=== PATIENT | female | born 1935 | race Hispanic/Latino ===

== ENCOUNTER → 2017-07-23 | Outpatient (CLI) | payer MEDICARE, OTHER ==
--- NOTE | 2017-07-23 15:58 | Diagnostic Imaging Report ---
PROCEDURE:THORACIC SPINE 2VW COMPARISON:None. INDICATIONS:THORACIC SPONDYLOSIS, RIGHT SHOULDER PAIN FINDINGS: Mild multilevel disc space narrowing and mild anterior disc osteophytes. No spondylolisthesis. No compression deformity. CONCLUSION: Mild degenerative changes throughout the thoracic spine. Dictated by: Rehan Wade M.D. on 07/23/2017 at 16:00 Electronically approved by: Rehan Wade M.D. on 07/23/2017 at 16:00
--- NOTE | 2017-07-23 16:00 | Diagnostic Imaging Report ---
PROCEDURE: C-SPINE COMPLETE COMPARISON: None. INDICATIONS: THORACIC SPONDYLOSIS, RIGHT SHOULDER PAIN FINDINGS: C1 through C6 are visualized on the lateral view. The spine is in anatomic alignment without evidence of fracture or subluxation. Vertebral body heights are maintained. Mild multilevel disc space narrowing with anterior disc osteophytes. Moderate facet arthrosis at C5-C6 and C6-C7. The prevertebral soft tissues are normal. On bilateral obliques, mild multilevel neuroforaminal narrowing especially in the left. CONCLUSION: Mild diffuse degenerative changes in the cervical spine. Mild multilevel neuroforaminal narrowing. Dictated by: Rehan Wade M.D. on 07/23/2017 at 16:02 Electronically approved by: Rehan Wade M.D. on 07/23/2017 at 16:02
== END ==
LOC: RAD 14:43
PROVIDERS: ATTEND Internal Medicine
DX: M47.814 Spondylosis without myelopathy or radiculopathy, thoracic region (principal); M54.2 Cervicalgia
CPT/HCPCS: 72050; 72070

== ENCOUNTER → 2018-02-18 | Outpatient (CLI) | payer MEDICARE, OTHER ==
--- NOTE | 2018-02-18 15:13 | Diagnostic Imaging Report ---
AP and Lateral views of the thoracic and lumbar spine HISTORY: Sprain of ligaments of thoracic spine, initial encounte COMPARISON: None. FINDINGS: Some of the osseous structures are partially obscured by stool and overlying bowel gas. Thoracic spine: Mild right convex curvature. No evidence of a compression deformity or displaced fracture. Mild to moderate multilevel degenerative disc changes. Lumbar spine: There are 5 non-rib bearing lumbar-type vertebral bodies. Mild left convex curvature. No evidence of a compression deformity or displaced fracture. Multilevel severe degenerative disc changes throughout the lumbosacral spine. Multilevel hypertrophic facet arthrosis, most notably severe at L5-S1 greater than L4-5. Other: * A nonspecific 9 mm round calcification within the mid to upper right hemiabdomen. * Diffuse scattered atherosclerotic vascular calcifications. IMPRESSION: 1. No acute radiographic abnormality. 2. Multilevel degenerative changes, most notably severe at L5-S1, greater than L4-5 and L3-4, resulting in multilevel neural foraminal encroachment. 3. Possible cholelithiasis. Signed by: Dr. Seymour Nunez D.O., M.M.M. on 02/18/2018 3:10 PM
--- NOTE | 2018-02-18 15:32 | Diagnostic Imaging Report ---
Exam: Bone mineral density study. History: Disorder of bone density Comparison: Data from baseline June 04, 2010, most recent January 15, 2012. Lumbar spine radiographs from the same date. Discussion: Evaluation of the left hip and lumbar spine was performed. The study is technically adequate. The patient's fracture risk is compared to an age-matched control. The patient denies prior surgery/fracture of the spine, hips or forearm. Left hip femoral neck bone mineral density: 0.8 g/cm2, T-score is -0.5, Z-score is 1.8. The left hip total bone mineral density is 1 g/cm2, the T-score is 0 and the total Z-score is 2.2. The BMD change versus baseline is - 6.9% and the BMD change versus previous - 4.1%, both are statistically significant. The lumbar spine total bone mineral density is 1.5 g/cm2, the T-score is 4.4, and the Z-score is 7.1. The BMD change versus baseline is + 9.7% and the BMD change versus previous + 4.8%, both are statistically significant. Impression: 1. Bone mineralization by WHO Classification is normal, the fracture risk is not increased. 2. Decreasing left hip bone mineral density. 3. Increasing lumbar spine bone mineral density is likely secondary to increasing degenerative changes, if bone densitometry is indicated in the future, recommend utilizing the left hip and a forearm for most accurate assessment. Signed by: Dr. Seymour Nunez D.O., M.M.M. on 02/18/2018 3:29 PM
== END ==
LOC: RAD 14:10
PROVIDERS: ATTEND Internal Medicine
DX: S23.3XXA Sprain of ligaments of thoracic spine, initial encounter (principal); M85.852 Other specified disorders of bone density and structure, left thigh
CPT/HCPCS: 72070; 72110; 77080

== ENCOUNTER → 2018-04-29 | Outpatient (CLI) | payer MEDICARE, OTHER | LOC: MAMMO 13:57 | PROVIDERS: ATTEND Internal Medicine | DX: Z12.31 Encounter for screening mammogram for malignant neoplasm of breast (principal) | CPT/HCPCS: 77067 ==

== ENCOUNTER → 2020-03-17 | Outpatient (CLI) | payer MEDICARE, OTHER ==
[~2020-03-17] MED LIST: HYDROCHLOROTHIA25 MG PO
== END ==
LOC: RAD 16:01
PROVIDERS: ATTEND Internal Medicine
DX: B34.2 Coronavirus infection, unspecified (principal)
CPT/HCPCS: 71046

== ENCOUNTER → 2020-05-16 | Outpatient (CLI) | payer MEDICARE, OTHER | LOC: MAMMO 14:46 | PROVIDERS: ATTEND Internal Medicine | DX: Z12.31 Encounter for screening mammogram for malignant neoplasm of breast (principal) | CPT/HCPCS: 77067 ==

== ENCOUNTER 2021-05-07 17:09 | Emergency (ER) | payer MEDICARE, OTHER ==
[~2021-05-07] VITALS: Ht 152.4 cm; Wt 80.3 kg
[2021-05-07 19:19] VITALS: BP 169/88
== END 2021-05-07 19:24 | disposition home or self-care (01) ==
LOC: ER 17:36
DX: J10.1 Influenza due to other identified influenza virus with other respiratory manifestations (principal); R05.9 Cough, unspecified; I10 Essential (primary) hypertension; Z20.822 Contact with and (suspected) exposure to COVID-19
CPT/HCPCS: 71045; 99283; U0002

== ENCOUNTER → 2021-05-17 | Outpatient (CLI) | payer MEDICARE, OTHER | LOC: RAD 15:42 | PROVIDERS: ATTEND Internal Medicine | DX: R07.81 Pleurodynia (principal) | CPT/HCPCS: 71046 ==

== ENCOUNTER 2021-05-27 23:02 | Emergency (ER) | payer MEDICARE, OTHER ==
[~2021-05-27] VITALS: Ht 152.4 cm; Wt 80.3 kg
[2021-05-27] MEDS ORDERED: CYCLOBENZAPRINE HCL 10 MG TAB ONE (23:28)
[2021-05-27] MEDS ORDERED: CYCLOBENZAPRINE HCL 10 MG TAB PO ONE (23:30)
[2021-05-28 00:34] VITALS: BP 163/75
[2021-05-28] MEDS ORDERED: CYCLOBENZAPRINE5 MG PO (00:34)
== END 2021-05-28 00:45 | disposition home or self-care (01) ==
LOC: ER 23:16
DX: R25.2 Cramp and spasm (principal)
CPT/HCPCS: 93970; 99283

== ENCOUNTER → 2021-05-29 | Outpatient (CLI) | payer MEDICARE, OTHER ==
[~2021-05-29] MED LIST changes: +CYCLOBENZAPRINE5 MG PO
== END ==
LOC: DX 11:17
PROVIDERS: ATTEND Internal Medicine
DX: Z13.820 Encounter for screening for osteoporosis (principal); N95.9 Unspecified menopausal and perimenopausal disorder
CPT/HCPCS: 77080

== ENCOUNTER 2022-01-10 14:15 | Emergency (ER) | payer MEDICARE, OTHER ==
[~2022-01-10] VITALS: Ht 152.4 cm; Wt 80.3 kg
[2022-01-10 14:51] LABS: CLARITY,URINE SL CLOUDY (CLEAR); COLOR,URINE YELLOW (YELLOW); KETONES,URINE NEGATIVE (NEGATIVE); LEUKOCYTE ESTERASE ,URINE TRACE (NEGATIVE); NITRITE,URINE NEGATIVE (NEGATIVE); PROTEIN,URINE DIPSTICK NEGATIVE (NEGATIVE); URINE UROBILINOGEN 0.2 mg/dL (0.2 - 1)
[2022-01-10 14:58] LABS: BACTERIA,URINE MODERATE /HPF; EPITHELIAL CELLS,URINE MODERATE /LPF
[2022-01-10] MEDS ORDERED: CEPHALEXIN500 MG PO (15:17)
== END 2022-01-10 15:24 | disposition home or self-care (01) ==
LOC: ER 14:20
DX: N39.0 Urinary tract infection, site not specified (principal); R32 Unspecified urinary incontinence; I10 Essential (primary) hypertension; Z79.899 Other long term (current) drug therapy
CPT/HCPCS: 81001; 87086; 99282

== ENCOUNTER 2023-07-20 08:28 | Emergency (ER) | payer MEDICARE, OTHER ==
[~2023-07-20] VITALS: Ht 152.4 cm; Wt 80.3 kg
[~2023-07-20 08:28] MED LIST changes: +CEPHALEXIN500 MG PO
[2023-07-20 09:20] LABS: BASOPHILS % 0.5 % (0.0-1.0); EOSINOPHILS # (AUTO) 0.3 (0.0-0.4); EOSINOPHILS % 4.2 % (0.0-6.0); HEMATOCRIT 38.8 % (34.2-44.1); LYMPHOCYTES # (AUTO) 1.6 (1.0-3.2); LYMPHOCYTES % 25.7 % (18.0-39.1); MEAN CORPUSCULAR HGB CONC 33.5 g/dL (31-35); MEAN CORPUSCULAR VOLUME 86.6 fL (81-99); MONOCYTES # (AUTO) 0.5 (0.2-0.8); MONOCYTES % 7.7 % (4.4-11.3); NEUTROPHILS # (AUTO) 3.8 (2.1-6.9); NEUTROPHILS % 61.7 % (38.7-80.0); PLATELET COUNT 230 x10e3/uL (140-360); RED BLOOD COUNT 4.48 x10e6/uL (3.6-5.1); RED CELL DISTRIBUTION WIDTH 13.2 % (11.7-14.4); WHITE BLOOD COUNT 6.12 x10e3/uL (4.8-10.8)
[2023-07-20 09:32] VITALS: O2SAT 97
[2023-07-20] MEDS: DEXAMETHASONE 4 MG TAB PO STA (09:32)
[2023-07-20 09:39] LABS: ALBUMIN 3.7 g/dL (3.5-5.0); ALBUMIN/GLOBULIN RATIO 0.9 (0.8-2.0); ANION GAP 15.1 mmol/L (8-16); BILIRUBIN,TOTAL 0.9 mg/dL (0.2-1.2); CALCIUM 9.2 mg/dL (8.4-10.2); CREATININE, SERUM 0.74 mg/dL (0.57-1.11); POTASSIUM 4.1 mmol/L (3.5-5.1); TOTAL PROTEIN 7.7 g/dL (6.5-8.1)
[2023-07-20 09:45] LABS: TROPONIN I 0.01 ng/mL (0-0.300)
[2023-07-20 09:51] LABS: INFLUENZAE A&B ANTIGEN (RAPID) NEGATIVE (NEGATIVE); RESPIRATORY SYNC. VIRUS NEGATIVE (NEGATIVE)
[2023-07-20] MEDS ORDERED: MUCINEX DM ER1 EACH PO (10:33)
== END 2023-07-20 10:53 | disposition home or self-care (01) ==
LOC: ER 08:37
DX: R05.9 Cough, unspecified (principal); J06.9 Acute upper respiratory infection, unspecified; I10 Essential (primary) hypertension; Z11.52 Encounter for screening for COVID-19; R94.31 Abnormal electrocardiogram [ECG] [EKG]
CPT/HCPCS: 36415; 71045; 80053; 83690; 84484; 85025; 87400; 87420; 93005; 99284; J8540; U0002

== ENCOUNTER 2023-12-28 15:47 | Emergency (ER) | payer MEDICARE, OTHER ==
[~2023-12-28] VITALS: Ht 152.4 cm; Wt 80.3 kg
[~2023-12-28 15:47] MED LIST changes: +MUCINEX DM ER1 EACH PO
[2023-12-28 16:12] VITALS: PULSE 82; RESP 19; TEMP 100.2; O2SAT 99
[2023-12-28] MEDS: ACETAMINOPHEN 325 MG TAB PO ONE (16:44)
[2023-12-28 17:05] LABS: INFLUENZAE A&B ANTIGEN (RAPID) NEGATIVE (NEGATIVE)
[2023-12-28 17:06] LABS: RESPIRATORY SYNC. VIRUS NEGATIVE (NEGATIVE); STREPTOCOCCUS GRP A ANTIGEN NEGATIVE (NEGATIVE)
[2023-12-28] MEDS ORDERED: PREDNISONE20 MG PO (17:35)
[2023-12-28] MEDS: PREDNISONE 20 MG TAB PO ONE (17:36)
[2023-12-28 17:40] VITALS: TEMP 99.2
== END 2023-12-28 17:41 | disposition home or self-care (01) ==
LOC: ER 15:57
DX: R50.9 Fever, unspecified (principal); J06.9 Acute upper respiratory infection, unspecified; R05.9 Cough, unspecified; I10 Essential (primary) hypertension; Z11.52 Encounter for screening for COVID-19
CPT/HCPCS: 71046; 83518; 87070; 87400; 87420; 99283; J7512; U0002